=== PATIENT | male | born 1970 | race Two or more races ===

== ENCOUNTER 2021-05-15 09:02 | Emergency (ER) | payer OTHER ==
[~2021-05-15] VITALS: Ht 180.3 cm; Wt 72.6 kg
[2021-05-15 09:16] VITALS: BP 145/85
[2021-05-15] MEDS ORDERED: IBUP-1957 PO (10:01)
[2021-05-15] MEDS ORDERED: METH-649 PO (10:01)
[2021-05-15] MEDS ORDERED: HYDROCODONE/APAP 5/325MG TABLET ONE (10:13)
[2021-05-15] MEDS: HYDROCODONE/APAP 5/325MG TABLET PO ONE (10:18)
--- NOTE | 2021-05-15 10:19 | NUR ---
VERIFIED PATIENT RE: CODEINE ALLERGY, PER PATIENT HE STILL TAKES NORCO. NORCO GIVEN TO PATIENT. Patient discharged to home in stable condition. Written and verbal after care instructions given. Patient verbalizes understanding of instruction.
== END 2021-05-15 10:19 | disposition home or self-care (01) ==
LOC: ER 09:05
DX: M54.5 Low back pain (principal); G89.29 Other chronic pain; Z88.5 Allergy status to narcotic agent

== ENCOUNTER 2021-05-29 01:08 | Emergency (ER) | payer OTHER ==
[~2021-05-29] VITALS: Ht 172.7 cm; Wt 78.0 kg
[~2021-05-29 01:08] MED LIST: IBUP-1957 PO; METH-649 PO
[2021-05-29 02:30] VITALS: BP 141/69
== END 2021-05-29 04:50 | disposition home or self-care (01) ==
LOC: ER 01:08
DX: H92.02 Otalgia, left ear (principal); G89.29 Other chronic pain; F17.200 Nicotine dependence, unspecified, uncomplicated; Z88.5 Allergy status to narcotic agent; Z79.899 Other long term (current) drug therapy

== ENCOUNTER 2021-07-08 04:20 | Emergency (ER) | payer OTHER ==
[~2021-07-08] VITALS: Ht 180.3 cm; Wt 81.6 kg
[2021-07-08 04:37] VITALS: BP 118/72
[2021-07-08] MEDS ORDERED: LORAZEPAM 1 MG TABLET ONE (04:47)
[2021-07-08] MEDS: LORAZEPAM 1 MG TABLET PO ONE (04:49)
[2021-07-08] MEDS ORDERED: CLON1TAB PO (05:02)
== END 2021-07-08 05:09 | disposition home or self-care (01) ==
LOC: ER 04:26
DX: F41.9 Anxiety disorder, unspecified (principal); Z76.0 Encounter for issue of repeat prescription; F17.200 Nicotine dependence, unspecified, uncomplicated; Z59.00 Homelessness unspecified; G89.29 Other chronic pain; Z98.890 Other specified postprocedural states; Z88.5 Allergy status to narcotic agent; Z79.899 Other long term (current) drug therapy

== ENCOUNTER 2021-07-30 22:09 | Emergency (ER) | payer OTHER ==
[~2021-07-30] VITALS: Ht 180.3 cm; Wt 81.6 kg
[~2021-07-30 22:09] MED LIST changes: +CLON1TAB PO
[2021-07-30 22:33] VITALS: BP 129/78
--- NOTE | 2021-07-30 23:43 | NUR ---
PT WAS D/C TO [facility] IN [facility] IN STABLE CONDITION
== END 2021-07-30 23:49 ==
LOC: ER 22:18
DX: S62.001A Unspecified fracture of navicular [scaphoid] bone of right wrist, initial encounter for closed fracture (principal); Z88.6 Allergy status to analgesic agent; X58.XXXA Exposure to other specified factors, initial encounter; Y93.89 Activity, other specified; Y92.89 Other specified places as the place of occurrence of the external cause; Y99.8 Other external cause status
CPT/HCPCS: 73110